=== PATIENT | female | born 1930 | race Caucasian/White ===

== ENCOUNTER 2018-11-14 08:49 | Inpatient (IN) ==
--- NOTE | 2018-11-14 09:18 | Diag Imaging Result Doc PS360 ---
EXAM: XRAY PELVIS W/HIP 2-3VW LT 11/14/2018 HISTORY: FALL TECHNIQUE: AP pelvis and bilateral hips four views COMMENT: There is a bipolar hip prosthesis on the left. There is marked generalized osteopenia. Has been internal fixation of the right femur previously. There are no previous studies available for comparison. There is some cortical discontinuity in the inferior pubic ramus on the left. The possibility of insufficiency fractures should be considered. IMPRESSION: Apparent fracture(s) of the left inferior pubic ramus. Electronically signed by Jerrell Mehta 11/14/2018 9:16 AM
[2018-11-14] MEDS ORDERED: ZOFRAN ODT PO ONE (11:23)
--- NOTE | 2018-11-14 11:55 | PROVIDER DOCUMENTATION ---
This chart was entered by Yenni Ochoa Scribe, acting as scribe for Asia Bellamy CRNP. HPI-Musculoskeletal Pain/Inj - GENERAL Chief Complaint: Hip Injury Stated Complaint: FALL Time Seen by Provider: 11/14/18 08:56 Source: patient, EMS - HX OF PRESENT ILLNESS-MUSKULOSKELTAL Nature of Presenting Problem: 88 yof presents to the ed via ems with c/o left hip pain post fall last night. sts just lost balance and fell landing on left hip. pt sts she can ambulate but is painful. denies any head injury or LOC. non-toxic in appearance. Quality of Pain: reports: sharp Severity in ED: moderate Onset/Duration: last night (2229) Timing: still present, constant Modifying Factors: improves with: immobilization. worse with: movement, palpation Any recent injury?: Yes Locality of Occurance: Home Similar Symptoms Previously?: No Recently seen or treated by another doctor?: No - FALL INJURY Location of Pain/Injury: reports: other (left hip) Pain Radiation: reports: no radiation Reason for Fall: reports: lost balance Symptoms prior to fall:: reports: none Loss of Consciousness: no loss of consciousness Injury Associated Symptoms: reports: snap/crack/pop sensation, weakness, trouble walking. denies: back/neck pain, chest pain, dizziness, headaches, nausea, shortness of breath - LOWER EXTREMITY PAIN/INJURY Lower Extremities Pain: hip: left Context / Method of Injury: reports: fell Associated Symptoms: reports: denies symptoms Review of Systems - Adult - REVIEW OF SYSTEMS - ADULT Constitutional: denies: chills, fever Eyes: reports: no symptoms reported Ears, Nose, Mouth & Throat: reports: no symptoms reported Cardiovascular: denies: chest pain, palpitations Respiratory: denies: shortness of breath, wheezing Gastrointestinal: denies: diarrhea, nausea, vomiting Genitourinary: reports: no symptoms reported Musculoskeletal: reports: see HPI, joint pain (left hip). denies: back pain, neck pain Integumentary: reports: no symptoms reported Neurological: reports: loss of balance. denies: dizziness/vertigo, headache/migraines, seizure, slurred speech, syncope, tremors Psychiatric: reports: no symptoms reported Endocrine: reports: no symptoms reported Hematologic/Lymphatic: reports: no symptoms reported Allergic/Immunologic: reports: no symptoms reported All Other Systems: Reviewed and Negative Past History - Adult - PAST MEDICAL HISTORY-ADULT Review of Records: reports: Old Records Reviewed, Nursing Assessment Review, Medications Reviewed, Social history reviewed & non-contributory. Major Childhood Illnesses: reports: denies history Cardiovascular: reports: HTN Respiratory: reports: denies history Gastrointestinal: reports: denies history Obstetrical/Gynecological: reports: denies history Genitourinary: reports: denies history Musculoskeletal: reports: denies history Hand Dominance: Right Handed Neurological: reports: denies history Psychiatric: reports: denies history Endocrine/Immune: reports: denies history, Diabetes Diabetes Type: Type 2 Other Conditions: reports: other cancer (breast) - PRIOR SURGERIES/PROCEDURES Surgical/Procedure History: reports: reviewed, not pertinent, joint replacement - IMMUNIZATION STATUS Childhood Immunizations: See Nurse Assessment Flu Vaccine: See Nurse Assessment - FAMILY HISTORY Family History: reviewed, not pertinent - SOCIAL HISTORY Smoking: denies Substance Use: denies Living Situation: family Physical Exam-Injury Related - Physical Exam-Injury Related Initial Vital Signs Reviewed: Yes General Appearance: appears well, alert, mild distress Eyes: PERRL/EOMI, pink conjunctivae Head, Ears, Nose, Mouth & Throat: moist mucous membranes, normal ENT inspection Neck: non-tender, full range of motion, supple, normal inspection Respiratory: chest non-tender, lungs clear, normal breath sounds, no pleuratic chest pain, no respiratory distress Cardiovascular: normal peripheral pulses, gallop/S3 Chest/Breast: deferred Peripheral Pulses: dorsalis-pedis (L): 2+ Abdominal Exam: normal bowel sounds, non tender, soft Female Genitalia/Pelvic Exam: deferred Rectal Exam: deferred Hemoccult Exam: deferred Lymphatic: no adenopathy Back Exam: normal inspection, no CVA tenderness, no vertebral tenderness Extremity: normal range of motion, normal inspection, normal capillary refill, tenderness (left hip). negative: deformity, erythema, pulse deficit, swelling Integumentary: normal color, warm/dry Neurologic: grossly normal, no motor/sensory deficits Psych/Mental Status: normal mood/affect, normal thought content, normal thought process, oriented x 3 - Glascow Coma Score Best Eye Response (Min): (4) open spontaneously Best Verbal Response (Sparta): (5) oriented Best Motor Response ([place]): (6) obeys commands [place] Total: 15 Progress - PLAN OF CARE/RESULTS Progress/Plan/Lab Results: Vital Signs - 8 hr 11/14/18 10:04 11/14/18 12:31 11/14/18 15:36 Temperature 98 F 98 F Pulse Rate 80 78 84 Respiratory Rate 18 18 22 Blood Pressure 148/84 144/68 137/64 O2 Sat by Pulse Oximetry 96 88 L 95 Laboratory Results - last 24 hr 11/14/18 11/14/18 11/14/18 12:16 12:16 12:16 WBC 10.24 RBC 4.23 Hgb 10.7 L Hct 36.8 L MCV 87.0 MCH 25.3 L MCHC 29.1 L RDW Std Deviation 28.7 H Plt Count 234 MPV 10.9 H Immature Gran % (Auto) 0.4 Neut % (Auto) 86.3 H Lymph % (Auto) 5.0 L Coke % (Auto) 6.6 Eos % (Auto) 1.6 Baso % (Auto) 0.1 Immature Gran # (Auto) 0.04 Neut # (Auto) 8.84 H Lymph # (Auto) 0.51 L Coke # (Auto) 0.68 H Eos # (Auto) 0.16 Baso # (Auto) 0.01 Segmented Neutrophils 86 H Lymphocytes 6 L Monocytes 6 Eosinophils 2 Anisocytosis 1+ Sodium 144 Potassium 3.8 Chloride 107 Carbon Dioxide 27 Anion Gap 10 BUN 11 Creatinine 0.6 Estimated GFR/1.73 m2 > 60 BUN/Creatinine Ratio 18 Glucose 131 H Calculated Osmolality 288 Calcium 9.0 Total Bilirubin 0.56 AST 19 ALT 17 Alkaline Phosphatase 92 Mqj-[id number]-Ntxajflbkpn Pept 3951 H Total Protein 6.7 Albumin 4.0 Globulin 2.7 Albumin/Globulin Ratio 1.5 Urine Source Urine Color Urine Turbidity Urine pH Ur Specific Nap[place] Urine Protein Ur Glucose (Stick) Ur Ketones (Stick) Urine Blood Urine Nitrite Urine Bilirubin Urobilinogen Dipstick Urine Leukocytes Urine WBC (Auto) Urine RBC (Auto) U Epithel Cells (Auto) Urine Bacteria (Auto) 11/14/18 12:25 WBC RBC Hgb Hct MCV MCH MCHC RDW Std Deviation Plt Count MPV Immature Gran % (Auto) Neut % (Auto) Lymph % (Auto) Coke % (Auto) Eos % (Auto) Baso % (Auto) Immature Gran # (Auto) Neut # (Auto) Lymph # (Auto) Coke # (Auto) Eos # (Auto) Baso # (Auto) Segmented Neutrophils Lymphocytes Monocytes Eosinophils Anisocytosis Sodium Potassium Chloride Carbon Dioxide Anion Gap BUN Creatinine Estimated GFR/1.73 m2 BUN/Creatinine Ratio Glucose Calculated Osmolality Calcium Total Bilirubin AST ALT Alkaline Phosphatase Caj-J-Ffpyzbzkcvn Pept Total Protein Albumin Globulin Albumin/Globulin Ratio Urine Source CLEAN CATCH Urine Color YELLOW Urine Turbidity CLEAR Urine pH 6.5 Ur Specific [place] 1.029 Urine Protein TRACE A Ur Glucose (Stick) NEGATIVE Ur Ketones (Stick) TRACE A Urine Blood NEGATIVE Urine Nitrite NEGATIVE Urine Bilirubin NEGATIVE Urobilinogen Dipstick NORMAL Urine Leukocytes NEGATIVE Urine WBC (Auto) <10 Urine RBC (Auto) <10 U Epithel Cells (Auto) <10 Urine Bacteria (Auto) NEGATIVE Orders Category Date Time Status CHEST-2 VIEWS [RAD] Stat Exams 11/14/18 12:27 Completed XRAY PELVIS W/HIP 2-3VW LT [RAD] Stat Exams 11/14/18 08:50 Completed CBC WITH ELECTRONIC DIFF [HEME] Stat Lab 11/14/18 12:16 Completed COMPREHENSIVE METABOLIC PANEL [CHEM] Stat Lab 11/14/18 12:16 Completed PRO B-NATRIURETIC PEPTIDE Stat Lab 11/14/18 12:16 Completed PROTIME WITH INR [COAG] Stat Lab 11/14/18 16:35 Ordered PTT [COAG] Stat Lab 11/14/18 16:35 Ordered URINALYSIS W/POSS RFLX CULT [URINALYSIS] Stat Lab 11/14/18 12:25 Completed Acetaminophen [Tylenol] Med 11/14/18 12:32 Discontinued 650 mg PO NOW ONE Ondansetron Odt [Zofran Odt] Med 11/14/18 11:23 Discontinued 4 mg PO NOW ONE EKG [EKG] Stat Ther 11/14/18 11:42 Draft Transfer/Admit Order [TRANSFER] Routine Transfer 11/14/18 14:32 Ordered Imaging results and plan of care discussed with patient who verbalizes understanding. 1027 ALISON Bellamy spoke with MD Hannah regarding patient's inferior pubic ramus fx. Per MD Hannah, patient is able to be d/c'd from ER and remain on protected weight bearing precautions with walker and f/u with MD Hannah w/in 1 week. 1235: Patient up to bedside commode and became short of breath w/ O2 sat 88%. ALISON Bellamy notified and patient placed on O2. CXR reveals interstitial pulmonary edema. Plan of care discussed and formulated with Dr. Desai. Result Diagrams: 11/14/18 12:16 11/14/18 12:16 - REASSESSMENT Reassessment #1 Time Reassessed: 11:41 Status: unchanged Reassessment #2 Time Reassessed: 13:55 Status: improving - XRAY 1 XRAY: Left XRAY Study: Pelvis, Hip Impression: See EMR Report (EXAM: XRAY PELVIS W/HIP 2-3VW LT 11/14/2018 HISTORY: FALL TECHNIQUE: AP pelvis and bilateral hips four views COMMENT: There is a bipolar hip prosthesis on the left. There is marked generalized osteopenia. Has been internal fixation of the right femur previously. There are no previous studies available for comparison. There is some cortical discontinuity in the inferior pubic ramus on the left. The possibility of insufficiency fractures should be considered. IMPRESSION: Apparent fracture(s) of the left inferior pubic ramus. Electronically signed by Jerrell Mehta 11/14/2018 9:16 AM 11/14/1816 Interpreting Physician: Jerrell Mehta MD Dictated Date/Time: 11/14/18911 cc: Juanita Desai MD; John Paul Riggins) 2 XRAY: Bilateral XRAY Study: Chest Impression: See EMR Report ([facility] [address] [facility], [address], [place] [address] Department of Imaging Patient: SRIKANTH SKY Date: 11/14/18#: [id number] : 1930ADM Status: REG [facility]#: [id number] Age/Sex: 88/FRoom/Bed: Loc: ED Ordering Physician: Asia Bellamy Family Physician: John Paul Riggins Reason for Procedure: FALL Signed EXAM: CHEST-2 VIEWS 11/14/2018 HISTORY: FALL TECHNIQUE: PA and lateral chest COMMENT: The inspiration is suboptimal. There is increased interstitial markings generally particularly over the right base. There is cardiomegaly. IMPRESSION: Cardiomegaly and interstitial pulmonary edema. Electronically signed by Jerrell Mehta 11/14/2018 12:51 PM 11/14/18 1251 Interpreting Physician: Jerrell Mehta MD Dictated Date/Time: 11/14/18 1250 cc: Asia Bellamy; John Paul Riggins) - CONSULTS/PCP/HOSPITALIST Notification #1 *Consult/PCP/Hospitalist*: MD Camden Time Discussed: 10:28 Reason/Comments: L inferior pubic rami fx Consult Disposition: F/U in office #2 Consult: hospitalist dr fitzpatrick Time Discussed: 13:55 (spoke with rosa ) Reason/Comments: phone consult Consult Disposition: Admit Departure - Departure Date of Disposition Decision: 11/14/18 Time of Disposition Decision: 13:56 DIAGNOSIS: Hip fx Qualifiers: Encounter type: initial encounter Fracture type: closed Laterality: unspecified laterality Qualified Code(s): S72.009A - Fracture of unspecified part of neck of unspecified femur, initial encounter for closed fracture Pulmonary edema Qualifiers: Chronicity: acute Qualified Code(s): J81.0 - Acute pulmonary edema Disposition: ADMITTED INPATIENT 09 Certified Medical Emergency: Emergent Condition: Stable - Critical Care Note This patient required my direct & personal management of CC.: No Attestation - Physician/ DIVINA Attestation Patient care was provided by Advanced Practice Provider:: Yes Advanced Practice Provider:: Asia Bellamy Advanced Practice Provider documentation review:: The Mid-level provider documentation, treatment plan and medical decision making was reviewed by the physician who agrees with all treatment and medical decision making by the MLP. The physician spent face to face time with patient:: No Advanced Practice Provider documentation review:: Supervising physician onsite and consulted in the evaluation and care of this patient. The physician did not have a face to face encounter with the patient. This chart was documented by the indicated scribe, (Yenni Ochoa Scribe) and accurately reflects the services I performed and decisions made by me, Asia Bellamy CRNP, as attested by the provider's signature.
[2018-11-14 12:30] LABS: BASO# 0.01 X1000 (0.0-0.2); BASO% 0.1 % (0.0-0.8); EOS# 0.16 X1000 (0.0-0.7); EOS% 1.6 % (0.0-10.0); HEMATOCRIT 36.8 % (37.0-47.0); HEMOGLOBIN 10.7 g/dL (12.0-16.0); IMM GRAN# 0.04 X1000 (0.0-0.04); IMM GRAN% 0.4 % (0.0-0.5); LYMPH# 0.51 X1000 (1.2-3.4); MCH 25.3 PG (27-31); MCHC 29.1 g/dL (33-37); MONO# 0.68 X1000 (0.11-0.59); MONO% 6.6 % (1.7-9.3); MPV 10.9 FL (7.4-10.4); NEUT# 8.84 X1000 (1.4-6.5); NEUT% 86.3 % (42.2-75.2); PLT 234 X1000 (130-400); RBC 4.23 XMIL (4.2-5.4); RDW 28.7 % (11.5-14.5); WBC 10.24 X1000 (4.8-10.8)
[2018-11-14] MEDS ORDERED: TYLENOL PO ONE (12:32)
[2018-11-14 12:34] LABS: URINE SOURCE CLEAN CATCH
[2018-11-14 12:43] LABS: BILIRUBIN URINE NEGATIVE (NEGATIVE); BLOOD URINE NEGATIVE (NEGATIVE); COLOR YELLOW; GLUCOSE URINE NEGATIVE (NEGATIVE); KETONE URINE TRACE mg/dL (NEGATIVE); LEUKOCYTES URINE NEGATIVE (NEGATIVE); NITRITE URINE NEGATIVE (NEGATIVE); PH URINE 6.5; PROTEIN URINE TRACE mg/dL (NEGATIVE); SP GRAVITY URINE 1.029; TURBIDITY URINE CLEAR (CLEAR); UROBILINOGEN URINE NORMAL (NORMAL)
[2018-11-14 12:44] LABS: UR EPITHELIAL CELLS <10 /HPF (<10); URINE BACTERIA NEGATIVE /HPF; URINE RBC <10 /HPF (<10); URINE WBC <10 /HPF (<10)
--- NOTE | 2018-11-14 12:49 | EKG Report ---
Test Performed on : 11/14/2018 12:01:46 PM Test Reason : Irregular HR Blood Pressure : / mmHG Vent. Rate : 078 BPM Atrial Rate : 033 BPM P-R Int : 000 ms QRS Dur : 110 ms QT Int : 432 ms P-R-T Axes : 000 009 259 degrees QTc Int : 492 ms Atrial fibrillation. with premature ventricular or aberrantly conducted complexes. Incomplete left bundle branch block ST & T wave abnormality, consider lateral ischemia Prolonged QT Abnormal ECG When compared with ECG of 30-JAN-2013 22:03, premature ventricular complexes. are no longer present T wave inversion less evident in Anterior leads Nonspecific T wave abnormality now evident in Lateral leads Unconfirmed Result
--- NOTE | 2018-11-14 12:53 | Diag Imaging Result Doc PS360 ---
EXAM: CHEST-2 VIEWS 11/14/2018 HISTORY: FALL TECHNIQUE: PA and lateral chest COMMENT: The inspiration is suboptimal. There is increased interstitial markings generally particularly over the right base. There is cardiomegaly. IMPRESSION: Cardiomegaly and interstitial pulmonary edema. Electronically signed by Jerrell Mehta 11/14/2018 12:51 PM
[2018-11-14 12:57] LABS: AGAP 10; ALB/GLOB RATIO 1.5; ALKALINE PHOSPHATASE 92 U/L (32-104); BUN 11 mg/dL (8-22); CHLORIDE 107 mmol/L (98-107); COSMO 288; CREATININE 0.6 mg/dL (0.5-0.9); ESTIMATED GFR > 60; GLUCOSE 131 mg/dL (70-104); GOT 19 U/L (10-30); GPT 17 U/L (10-36); POTASSIUM 3.8 mmol/L (3.5-5.1); SODIUM 144 mmol/L (136-145); TCO2 27 mmol/L (25-35); TOTAL BILIRUBIN 0.56 mg/dL (0.20-1.00); TOTAL PROTEIN 6.7 g/dL (6.3-8.3)
[2018-11-14 13:17] LABS: ANISOCYTOSIS 1+; EOS 2 % (1-10); LYMPHS 6 % (21-51); MONO 6 % (1-9); SEGS 86 % (42-75)
[2018-11-14] MEDS ORDERED: LASIX IV ONE (16:40)
--- NOTE | 2018-11-14 17:26 | HISTORY AND PHYSICAL ---
PATIENT PROFILE: Ms. Bazan is followed by John Paul Contreras. She was last here on 01/30/2013 with a GI bleed. HISTORY OF PRESENT ILLNESS: This is an 88-year-old white female, well known with past medical history of atrial fibrillation, as well as mitral valve replacement with [employer] mechanical valve on chronic anticoagulation with Coumadin. She was admitted to [facility] back in 2012 for GI bleed, recent multiple blood transfusions at that time and underwent an EGD. EGD showed gastritis. She had been transferred to our facility. She has a history of breast cancer status post bilateral mastectomies. History of paroxysmal atrial fibrillation, history of glaucoma, history of hypertension, history of dyslipidemia. PAST SURGICAL HISTORY: 1. 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's mechanical valve. 2. Hip replacement surgery. 3. Left total mastectomy. 4. She has had back surgery, a kyphoplasty I think in the lumbar spine for compression fracture. 5. I think she has a jean carlos in her right leg. 6. Left hip replacement. SOCIAL HISTORY: Denies any tobacco, ethanol, or illicit drugs. FAMILY HISTORY: Noncontributory. She does not report any family history of significant medical problems. ALLERGIES: Doxycycline, Phenergan, sulfa. REVIEW OF SYSTEMS: General: No weight gain or loss that she reports. HEENT: No change in visual or hearing acuity. No neck pain. Respiratory: No upper respiratory complaints. No increased work of breathing or dyspnea, although at times they have noticed a little bit of cough and recently complaining of a little more shortness of breath. Cardiovascular: No chest pain or tachy palpitations. Gastrointestinal and Genitourinary: No gross hematuria, dysuria. Musculoskeletal/Neurologic: Complaint of pain in the left side on her hip. Story was that she thinks when getting out of her chair or maybe when she tried to put on her shoes, she fell, landed on her bottom, and she has suffered a pubic rami pelvic fracture, and she cannot stand and walk. She is complaining of a little bit of shortness of breath. In the emergency room, it appeared she had some mild interstitial edema. We are going to give her some supplementary O2 and look at her left ventricular function, and she is going to be admitted for questionable pulmonary edema and dyspnea. PHYSICAL EXAM: VITAL SIGNS: Temperature 98 degrees, pulse 84, respirations 22, blood pressure 137/64. EYES: Pupils are equal and round. LUNGS: Clear in all lung velazquez. CARDIOVASCULAR EXAM: Regular rhythm and rate without murmur or S3. ABDOMEN: Soft. SKIN: Warm and dry. HENT: CVP appears less than 6 cm. Conjunctiva pink. NECK: Supple. No cervical adenopathy. HEIGHT AND WEIGHT: Weight 140 pounds, height 5 feet 6 inches. LAB: White count 10,240, hematocrit 36, platelet count 234,000. Sodium 144, potassium 3.8, chloride 107, bicarbonate 27. BUN 11, creatinine 0.6. Blood sugar 131, calcium 9.0. AST is 19, ALT is 17, alkaline phosphatase was 92. ProBNP 3951, albumin 4.0. Urine was clear. X-RAY: Chest x-ray: Cardiomegaly and interstitial pulmonary edema. X-rays of pelvis and hip: Fracture of the left inferior pubic ramus. ASSESSMENT AND PLAN: 1. Pelvic fracture very painful. Unable to control pain as outpatient, and also she cannot ambulate. She lives alone. So, we will admit and begin physical therapy. 2. Interstitial pulmonary edema, cardiomegaly. She has a history of mechanical mitral valve. We are going to check an echocardiogram with Doppler in the morning, and we will give her a little bit of Lasix and supplementary oxygen. I think we will try some bronchodilators, maybe 4 times a day, DuoNebs. Put her on 2 liter oxygen per nasal cannula. 3. Mechanical mitral valve appears to be working appropriately. We will check an echocardiogram. She is on chronic anticoagulation. We will check her pro time and follow that closely as well. 4. Hypertension. Continue her Monopril 10 mg every morning. She is also already on Lasix 40 mg every morning. We will give her an additional dose of Lasix now 40 mg intravenous. 5. Diabetes mellitus type 2. Continue her metformin. Follow pattern sugars. Check hemoglobin A1c in the morning. 6. History of allergic rhinitis. We will continue her Singulair 10 mg a day. 7. History of gastroesophageal reflux. We will continue her Protonix 40 mg a day. 8. History of hyperlipidemia. She is on simvastatin; give her 40 mg at bedtime. 9. History of glaucoma. Continue her Travatan eyedrops. 10. She was on venlafaxine 37.5 mg at bedtime. We will continue that. I think that was for anxiety and possible depression. cc: Rodolfo Hale MD
[2018-11-14 17:38] LABS: INR 1.82; PROTIME 22.4 Seconds (11.0-16.0)
[2018-11-14 17:39] LABS: PTT 42.3 Seconds (22.3-41.8)
[2018-11-14] MEDS ORDERED: ZOFRAN IV PRN (17:44)
[2018-11-14] MEDS ORDERED: NORCO-7.5 PO PRN (17:44)
[2018-11-14] MEDS: DUONEB (A & A) INH SCH ×2 (19:49→23:56)
[2018-11-14] MEDS ORDERED: NETARSUDIL MESYLATE ophthalmic (eye) SCH (21:00)
[2018-11-14] MEDS: COUMADIN PO SCH (21:51)
[2018-11-14] MEDS: SINGULAIR PO SCH (21:52)
[2018-11-14] MEDS: EFFEXOR XR PO SCH (21:52)
[2018-11-14] MEDS: ZOCOR PO SCH (21:52)
[2018-11-14] MEDS: PATIENT'S OWN MED RIGHT EYE SCH (21:53)
[2018-11-15] MEDS: DUONEB (A & A) INH SCH ×6 (03:43→23:20)
[2018-11-15] MEDS: COMBIGAN OPHTH SOLN BOTH EYES SCH ×4 (05:39→20:07)
[2018-11-15] MEDS: TRAVATAN 0.004% OPH SOLN BOTH EYES SCH ×2 (05:39→20:07)
[2018-11-15 06:01] LABS: HEMOGLOBIN A1C 4.8 % (4.8-6.0)
[2018-11-15] MEDS: PROTONIX PO SCH (06:19)
--- NOTE | 2018-11-15 06:22 | Diag Imaging Result Doc PS360 ---
EXAM: CHEST-PORTABLE HISTORY: pulm edema follow up TECHNIQUE: Portable chest single view COMPARISON: 11/14/2018 FINDINGS: The lungs are well expanded. The heart is enlarged. There are sternal wires and surgical clips. Mild increased interstitial markings are present in both lungs. No consolidation. No pleural effusions identified. There is a calcified granuloma in the left lung base. IMPRESSION: Persistent cardiomegaly with mild pulmonary edema Electronically signed by Karthik Augdelo 11/15/2018 6:20 AM
[2018-11-15 06:33] LABS: AGAP 9; ALB/GLOB RATIO 1.3; ALBUMIN 3.5 g/dL (3.5-5.0); ALKALINE PHOSPHATASE 71 U/L (32-104); BUN 10 mg/dL (8-22); CALCIUM 8.5 mg/dL (8.8-10.2); CHLORIDE 105 mmol/L (98-107); CK PROFILE 15 U/L (24-173); COSMO 288; CREATININE 0.6 mg/dL (0.5-0.9); ESTIMATED GFR > 60; GLUCOSE 133 mg/dL (70-104); GOT 12 U/L (10-30); GPT 12 U/L (10-36); MAGNESIUM 2.1 mg/dL (1.5-2.7); POTASSIUM 3.6 mmol/L (3.5-5.1); SODIUM 144 mmol/L (136-145); TCO2 30 mmol/L (25-35); TOTAL BILIRUBIN 0.53 mg/dL (0.20-1.00); TOTAL PROTEIN 6.3 g/dL (6.3-8.3)
[2018-11-15 06:37] LABS: FREE T4 1.18 ng/dL (0.93-1.70); TSH 0.96 uIUmL (0.27-4.20)
[2018-11-15 06:52] LABS: PROTIME 24.2 Seconds (11.0-16.0)
[2018-11-15 06:53] LABS: BASO# 0.02 X1000 (0.0-0.2); BASO% 0.3 % (0.0-0.8); EOS# 0.41 X1000 (0.0-0.7); EOS% 5.3 % (0.0-10.0); HEMATOCRIT 33.2 % (37.0-47.0); HEMOGLOBIN 9.4 g/dL (12.0-16.0); IMM GRAN# 0.02 X1000 (0.0-0.04); IMM GRAN% 0.3 % (0.0-0.5); LYMPH# 0.59 X1000 (1.2-3.4); LYMPH% 7.7 % (20.5-51.1); MCH 25.2 PG (27-31); MCHC 28.3 g/dL (33-37); MONO# 0.75 X1000 (0.11-0.59); MONO% 9.8 % (1.7-9.3); MPV 10.7 FL (7.4-10.4); NEUT# 5.89 X1000 (1.4-6.5); NEUT% 76.6 % (42.2-75.2); PLT 199 X1000 (130-400); PTT 49.2 Seconds (22.3-41.8); RBC 3.73 XMIL (4.2-5.4); RDW 28.8 % (11.5-14.5); WBC 7.68 X1000 (4.8-10.8)
--- NOTE | 2018-11-15 08:00 | EKG Report ---
Test Performed on : 11/15/2018 07:00:20 AM Test Reason : chest pain Blood Pressure : / mmHG Vent. Rate : 071 BPM Atrial Rate : 056 BPM P-R Int : 000 ms QRS Dur : 114 ms QT Int : 448 ms P-R-T Axes : 000 -23 -40 degrees QTc Int : 486 ms Atrial fibrillation. Low voltage QRS Incomplete left bundle branch block Nonspecific ST and T wave abnormality Prolonged QT Abnormal ECG When compared with ECG of 14-NOV-2018 12:01, (Unconfirmed) Nonspecific T wave abnormality no longer evident in Lateral leads Unconfirmed Result
[2018-11-15] MEDS: LASIX PO SCH (09:23)
[2018-11-15] MEDS: MONOPRIL PO SCH (09:23)
--- NOTE | 2018-11-15 14:37 | PROGRESS NOTE ---
DATE: 11/15/2018 SUBJECTIVE: Ms. Bazan was able to stand with a good deal of pain, able to get in a chair. She is eating her lunch. Remains afebrile. OBJECTIVE: Vital Signs: Temperature 98.4 degrees, pulse 69, respirations 16, blood pressure 126/48. Eyes: Pupils are equal and round. Lungs: Clear in all lung velazquez. Cardiovascular exam: Regular rhythm and rate without murmur or S3. Abdomen: Soft. Skin: Warm and dry. ASSESSMENT AND PLAN: 1. Pelvic fracture. A lot of pain. Continue physical therapy. Try and pursue weight bearing. She will need to go to rehabilitation. She lives alone, independent. She cannot walk or stand at this time. 2. Interstitial pulmonary edema which is very mild. That is improved. Gave her a little bit of Lasix yesterday. Breathing comfortably. 3. Mechanical mitral valve. She is on chronic anticoagulant. Note that her pro time was 24. INR is 2, which is perfect. 4. Hypertension. Blood pressure under good control. 5. Diabetes mellitus type 2. Sugars under good control. 6. Allergic rhinitis. 7. History of gastroesophageal reflux. 8. History of hyperlipidemia. 9. History of glaucoma. 10. Continue her venlafaxine which is Effexor 37.5 mg at bedtime. She is on Coumadin 3.5 mg at bedtime. cc: Rodolfo Hale MD
[2018-11-15] MEDS: EFFEXOR XR PO SCH (20:07)
[2018-11-15] MEDS: COUMADIN PO SCH (20:07)
[2018-11-15] MEDS: ZOCOR PO SCH (20:07)
[2018-11-15] MEDS: SINGULAIR PO SCH (20:07)
[2018-11-15] MEDS: PATIENT'S OWN MED RIGHT EYE SCH (20:08)
[2018-11-16] MEDS: DUONEB (A & A) INH SCH ×7 (03:32→23:34)
[2018-11-16 06:27] LABS: INR 1.8; PROTIME 22.2 Seconds (11.0-16.0)
[2018-11-16 06:28] LABS: PTT 47.9 Seconds (22.3-41.8)
--- NOTE | 2018-11-16 06:42 | ECHO REPORT ---
ORDER DATE: 11/14/2018 SUMMARY: 1. Technically difficult study due to limited acoustic window quality. 2. Very mild sclerotic change of trileaflet aortic valve demonstrated with adequate aortic valve opening evident. Peak gradient across the aortic valve is 13 mmHg. Mitral valve has been replaced with mechanical prosthesis, which is not well seen. Doppler of mitral valve suggests adequate function. There is no mitral regurgitation appreciated. Tricuspid valve is without evidence of structural abnormality with mild tricuspid regurgitation. The estimated systolic PA pressure by Doppler is 60 to 65 mmHg suggesting moderate pulmonary hypertension. There is trace pulmonic insufficiency. Aortic root is normal in size. 3. Normal left ventricle dimensions suggested on 2-dimensional images. Estimated left ejection fraction appears to be at least 55%. No obvious wall motion or other abnormalities can be appreciated. Left atrium appears moderately enlarged. The right atrium appears mildly enlarged. Right ventricle is grossly normal in size. 4. No pericardial effusion. 5. Inferior vena cava not well demonstrated. 6. Rhythm of the study appears to be atrial fibrillation. cc: Desmond Muñoz MD
[2018-11-16] MEDS: PROTONIX PO SCH (06:56)
[2018-11-16] MEDS: TYLENOL PO PRN ×2 (06:56→17:51)
[2018-11-16] MEDS: MONOPRIL PO SCH (08:40)
[2018-11-16] MEDS: LASIX PO SCH (08:40)
[2018-11-16] MEDS: COMBIGAN OPHTH SOLN BOTH EYES SCH ×2 (08:41→22:34)
--- NOTE | 2018-11-16 11:42 | PROGRESS NOTE ---
DATE: 11/16/2018 SUBJECTIVE: Ms. Bazan is feeling a little bit better. Still tremendous pain when she tries to bear weight or stand up. OBJECTIVE: Vital Signs: Temperature 98.9 degrees, pulse 50, respirations 24, blood pressure 92/38. Eyes: Pupils are equal and round. Lungs: Clear in all lung velazquez. Cardiovascular: Regular rhythm and rate without murmur or S3. ASSESSMENT AND PLAN: 1. Pelvic fracture. Continue physical therapy. Try and get her to rehabilitation on Sunday or Sunday. She lives alone and she needs to be able to bear weight and be able to walk before we can send her home. 2. Interstitial pulmonary edema, which was very mild, is improved. 3. Mechanical mitral valve, on Coumadin, and INR is between 20 to 24, so we will continue that. 4. Hypertension. 5. Diabetes mellitus type 2. Sugar under good control. 6. Allergic rhinitis. 7. History of gastroesophageal reflux. 8. History of hyperlipidemia. 9. History of glaucoma. 10. Continue her Effexor for history of anxiety and depression in the past. 11. I reviewed other orders. I do not see any other change. cc: Rodolfo Hale MD
[2018-11-16] MEDS: EFFEXOR XR PO SCH (22:33)
[2018-11-16] MEDS: COUMADIN PO SCH ×2 (22:33→22:38)
[2018-11-16] MEDS: ZOCOR PO SCH (22:34)
[2018-11-16] MEDS: SINGULAIR PO SCH (22:35)
[2018-11-16] MEDS: TRAVATAN 0.004% OPH SOLN BOTH EYES SCH (22:35)
[2018-11-16] MEDS: PATIENT'S OWN MED RIGHT EYE SCH (22:36)
[2018-11-17] MEDS: DUONEB (A & A) INH SCH ×5 (03:07→19:41)
[2018-11-17] MEDS: PROTONIX PO SCH ×2 (05:07→07:28)
[2018-11-17] MEDS: TYLENOL PO PRN ×2 (05:07→18:25)
[2018-11-17 06:07] LABS: INR 1.55; PROTIME 19.7 Seconds (11.0-16.0)
[2018-11-17 06:08] LABS: PTT 47.5 Seconds (22.3-41.8)
[2018-11-17] MEDS: COMBIGAN OPHTH SOLN BOTH EYES SCH ×2 (08:07→20:08)
[2018-11-17] MEDS: MONOPRIL PO SCH (08:07)
[2018-11-17] MEDS: LASIX PO SCH (08:07)
[2018-11-17] MEDS ORDERED: MILK OF MAGNESIA PO PRN (14:24)
[2018-11-17] MEDS: COLACE PO SCH ×2 (16:31→20:14)
[2018-11-17] MEDS: MIRALAX PO SCH (16:31)
[2018-11-17] MEDS: ZOCOR PO SCH (20:07)
[2018-11-17] MEDS: COUMADIN PO SCH (20:07)
[2018-11-17] MEDS: EFFEXOR XR PO SCH (20:07)
[2018-11-17] MEDS: SINGULAIR PO SCH (20:07)
[2018-11-17] MEDS: TRAVATAN 0.004% OPH SOLN BOTH EYES SCH (20:08)
[2018-11-17] MEDS: PATIENT'S OWN MED RIGHT EYE SCH (20:09)
[2018-11-18] MEDS: DUONEB (A & A) INH SCH ×7 (00:29→23:14)
[2018-11-18] MEDS: MONOPRIL PO SCH (08:02)
[2018-11-18] MEDS: MIRALAX PO SCH (08:02)
[2018-11-18] MEDS: LASIX PO SCH (08:04)
[2018-11-18] MEDS: COMBIGAN OPHTH SOLN BOTH EYES SCH ×2 (08:04→20:19)
[2018-11-18] MEDS: COLACE PO SCH ×2 (08:04→20:19)
--- NOTE | 2018-11-18 08:08 | Diag Imaging Result Doc PS360 ---
CHEST-PORTABLE - 11/18/2018 INDICATION: pulmonary edema COMPARISON: 11/15/2018 FINDINGS: Stable sternotomy wires. Stable mild cardiomegaly. There has been improvement in the ill-defined increased markings bilaterally consistent with improving edema or pneumonia. No new infiltrates. No pleural effusion. IMPRESSION: Improving mild interstitial infiltrates. Stable cardiomegaly. Electronically signed by Lyle Partida 11/18/2018 8:05 AM
[2018-11-18 09:27] LABS: INR 1.61; PROTIME 20.3 Seconds (11.0-16.0)
--- NOTE | 2018-11-18 13:52 | PROGRESS NOTE ---
DATE: 11/18/2018 SUBJECTIVE: Ms. Bazan is doing better. She is actually ambulating to the bathroom and came back. She did get choked on a little bit of food this morning by report. She says she does that often at home. Encouraged her to make sure she is sitting up when she is eating. OBJECTIVE: Vital Signs: Temperature 97.7 degrees, pulse 68, respirations 14, blood pressure 96/53. HEENT: Pupils are equal. Neck: No distended neck veins. Lungs: Clear in all lung velazquez. Cardiovascular: Regular rate without murmur or S3. Abdomen: Soft. Skin: Warm and dry. LABORATORY DATA: Urine output is 1800 mL. Chest x-ray: Improving interstitial infiltrates. ASSESSMENT AND PLAN: 1. Pelvic fracture. Doing better. Waiting on rehab, possibly going to [facility]. We will see how we do. 2. Interstitial pulmonary edema, which is improved. 3. Mechanical mitral valve, on Coumadin, INR stable 1.6. Pro time was 20. 4. Hypertension. 5. Diabetes mellitus type 2. Sugar is under good control. 6. Allergic rhinitis. 7. History of gastroesophageal reflux. 8. Hyperlipidemia. 9. History of glaucoma, aware. 10. History of anxiety and depression. She is on Effexor. Seems to be doing well. Wait for rehab. Kidney function good. Electrolytes look good. Folate was a little low. B12 was a good level, so I will give her a little bit of folate and recommend multivitamin. cc: Rodolfo Hale MD
[2018-11-18] MEDS: FOLIC ACID PO SCH (14:23)
[2018-11-18] MEDS: COUMADIN PO SCH (20:18)
[2018-11-18] MEDS: SINGULAIR PO SCH (20:19)
[2018-11-18] MEDS: ZOCOR PO SCH (20:19)
[2018-11-18] MEDS: TRAVATAN 0.004% OPH SOLN BOTH EYES SCH (20:19)
[2018-11-18] MEDS: EFFEXOR XR PO SCH (20:19)
[2018-11-18] MEDS: PATIENT'S OWN MED RIGHT EYE SCH (20:22)
[2018-11-19] MEDS: PROTONIX PO SCH ×2 (01:20→06:17)
[2018-11-19] MEDS: DUONEB (A & A) INH SCH ×6 (03:39→22:47)
[2018-11-19] MEDS: MONOPRIL PO SCH (09:44)
[2018-11-19] MEDS: COMBIGAN OPHTH SOLN BOTH EYES SCH ×2 (09:45→20:06)
[2018-11-19] MEDS: FOLIC ACID PO SCH (09:45)
[2018-11-19] MEDS: COLACE PO SCH ×2 (09:45→20:06)
[2018-11-19] MEDS: MIRALAX PO SCH (09:45)
[2018-11-19] MEDS: LASIX PO SCH (09:45)
--- NOTE | 2018-11-19 15:39 | PROGRESS NOTE ---
DATE: 11/19/2018 SUBJECTIVE: Today Ms. Bazan refers to be doing fairly okay. She denies any complaints. She was hoping to be transferred to rehab. OBJECTIVE: Vital signs: Blood pressure is 147/81, pulse is 75, respiration is 18, temperature 97.9 degrees. Patient is saturating 96% on room air. General: Ms. Bazan is an 88-year-old female. She is in bed. She is not in any cardiopulmonary distress. HEENT: Mucosa is pink and moist. Anicteric. Acyanotic. Neck: Supple. Chest: Clear to auscultation. No crepitations. No rhonchi. Cardiovascular: Regular rate and rhythm. No murmurs. No rubs. No gallops. Abdomen: Soft, nontender. Bowel sounds present. Extremities: No pedal edema. : There is still a Villanueva catheter in place. DESIGN AND SALES CONSULTANT: Patient is awake and alert. LABORATORY DATA: None for today. ASSESSMENT: 1. Left anterior pubic ramus fracture. The patient is getting physical therapy. Seems to be able to get around with physical therapy well. The plan is to get her to rehab to continue with physical rehabilitation. 2. History of mechanical mitral valve. Patient is on Coumadin. We will continue this. INR yesterday was 1.61. 3. Congestive heart failure with preserved ejection fraction associated with pulmonary edema, improved. 4. Folate deficiency. Will be replaced. 5. Diabetes mellitus type 2, controlled. 6. Hypertension, stable. PLAN: So in general, we are going to discontinue the Villanueva catheter. Encourage Ms. Bazan to continue with physical therapy and wait for further recommendations for social work arrangements for rehab placement. cc: Augustus Barreto MD
[2018-11-19] MEDS: TYLENOL PO PRN (18:29)
[2018-11-19] MEDS: COUMADIN PO SCH (20:05)
[2018-11-19] MEDS: ZOCOR PO SCH (20:06)
[2018-11-19] MEDS: EFFEXOR XR PO SCH (20:06)
[2018-11-19] MEDS: SINGULAIR PO SCH (20:06)
[2018-11-19] MEDS: PATIENT'S OWN MED RIGHT EYE SCH (20:07)
[2018-11-19] MEDS: TRAVATAN 0.004% OPH SOLN BOTH EYES SCH (20:07)
[2018-11-20] MEDS: DUONEB (A & A) INH SCH ×3 (04:01→11:24)
[2018-11-20] MEDS: PROTONIX PO SCH (07:00)
[2018-11-20] MEDS: COMBIGAN OPHTH SOLN BOTH EYES SCH (08:36)
[2018-11-20] MEDS: LASIX PO SCH (08:36)
[2018-11-20] MEDS: MONOPRIL PO SCH (08:37)
[2018-11-20] MEDS: COLACE PO SCH (08:37)
[2018-11-20] MEDS: FOLIC ACID PO SCH (08:37)
[2018-11-20] MEDS: MIRALAX PO SCH (08:38)
[2018-11-20 09:39] LABS: INR 1.74; PROTIME 21.7 Seconds (11.0-16.0)
--- NOTE | 2018-11-20 10:13 | DISCHARGE SUMMARY ---
ADMISSION DATE: 11/14/2018 DISCHARGE DATE: 11/20/2018 DIAGNOSES: 1. Left anterior pubic ramus fracture. 2. History of mechanical mitral valve on chronic anticoagulation. 3. Hypertension. 4. Diabetes mellitus type 2. 5. Gastroesophageal reflux disease. 6. History of glaucoma. 7. Interstitial pulmonary edema, improved. DIAGNOSTICS: 1. 11/14/2018 pelvis x-ray revealed apparent fractures of the left inferior pubic ramus. 2. 11/14/2018 chest x-ray revealed cardiomegaly and interstitial pulmonary edema. 3. 11/14/2018 echocardiogram revealed ejection fraction of 55% with no obvious wall motion abnormalities. 4. 11/18/2018 chest x-ray revealed improving mild interstitial edema and stable cardiomegaly. HOSPITAL COURSE: Ms. Bazan presented to the emergency room complaining of left hip pain after falling. She was found to have left pubic rami fractures. Her pain is improving. She has been working with physical therapy. She has history of congestive heart failure and associated pulmonary edema. With diuresis this hospitalization, she is -[id number]. She does have a history of a mitral valve. She is on long-term anticoagulation with Coumadin. INR's have been trended, and she is 1.61 today. We will adjust her Coumadin accordingly. Her hemoglobin A1c was 4.8. Thankfully, she is ready to be discharged to rehab. DISCHARGE EXAMINATION: Vital signs: Blood pressure 142/70 with heart rate of 66, respirations 18, and temperature is 97.8 degrees oral with room air sat 96%. Cardiovascular: Irregularly irregular rate and rhythm. S1 and S2 appreciated. She has no murmurs. She has no pedal edema. Peripheral pulses are palpable x4 extremities. Calves are nontender to palpation. Pulmonary: Breath sounds are clear. No increased work of breathing noted. Chest rises and falls symmetric with respiration. Chest wall is nontender to palpation. Gastrointestinal: Abdomen is soft, nontender, and nondistended with bowel sounds in all 4 quadrants. DISCHARGE MEDICATIONS: 1. Combigan ophthalmic solution 1 drop both eyes b.i.d. 2. Colace 100 mg p.o. b.i.d. 3. Folic Acid 1 mg p.o. daily. 4. Monopril 10 mg p.o. daily. 5. Lasix 40 mg p.o. daily. 6. Metformin 500 mg p.o. b.i.d. 7. Singulair 10 mg p.o. at bedtime. 8. Rhopressa ophthalmic solution 1 drop bilateral both eyes at bedtime. 9. Protonix 40 mg p.o. daily. 10. MiraLAX 17 g p.o. daily. 11. Simvastatin 40 mg p.o. at bedtime. 12. Travatan 0.004% ophthalmic solution 1 drop both eyes at bedtime. 13. Effexor 37.5 p.o. at bedtime. 14. Warfarin 7.5 mg p.o. 11/20/2018 and 11/21/2018, and then discontinue. 15. Warfarin 3.5 mg p.o. at bedtime to start 11/22/2018. FOLLOW-UP LABORATORY: She will need a PT, INR rechecked in 3 days with results to be called to the ophthalmic medical technologist. He will adjust further warfarin dose according to INR results. She is being discharged in transfer to rehab in stable condition with family members present. TIME SPENT: This is a greater than 30 minute discharge. Dictated by ALISON Taveras for Augustus Barreto MD This chart was documented by, ALISON Taveras and accurately reflects the services performed, treatment plan and medical decisions as attested by the providers signature Augustus Barreto MD. cc: ALISON Taveras MD
[2018-11-20 11:40] VITALS: BP 123/53
== END 2018-11-20 13:00 | DRG 292 ==
LOC: SUPCPDRO → ED 08:49 → 4N 16:21 → SUATTDRO 16:21
PROVIDERS: ATTEND Internal Medicine
CPT/HCPCS: 51702; 71010; 71020; 71045; 71046; 73502; 80053; 81001; 82550; 82607; 82746; 83036; 83735; 83880; 84439; 84443; 84484; 85025; 85610; 85730; 93005; 93010; 93306; 94640; 94760; 94761; 94799; 96374; 97116; 97162; 97530; 99285; A9270; J1940